=== PATIENT | male | born 1940 | race Caucasian/White ===

== ENCOUNTER → 2017-12-05 | Outpatient (CLI) | payer MEDICARE ==
[~2017-12-05] MED LIST: ASPI-1471 PO; BLOO-1511 MC; BLOO-960 MC; CA C1TAB85 PO; CEPH500T7 PO; CHOL10005 PO; CHOL200021 PO; COL625PT PO; EZET10TA41 PO; GOLYTE PO; HUM100VI2 SUBQ; INSU100V24 SQ; LANC-648 MC; LANI SUBQ; LISI-351 PO; LISI-353 PO; METF-420 PO; MULT1TAB64 PO; NPH,100V2 SUBQ; PNEU0.5D3 IM; PRED-1 PO; SIMV-49 PO
== END ==
LOC: LAB 08:14
PROVIDERS: ATTEND Emergency Medicine
DX: Z12.5 Encounter for screening for malignant neoplasm of prostate (principal); N18.3 Chronic kidney disease, stage 3 (moderate); E11.9 Type 2 diabetes mellitus without complications
CPT/HCPCS: 36415; 83036; G0103; 82310; 82374; 82435; 82565; 82947; 84132; 84153; 84295; 84520

== ENCOUNTER → 2018-03-10 | Outpatient (CLI) | payer MEDICARE ==
[~2018-03-10] MED LIST changes: +SYRI-1525 MC
== END ==
LOC: LAB 08:05
PROVIDERS: ATTEND Emergency Medicine
DX: E11.9 Type 2 diabetes mellitus without complications (principal)
CPT/HCPCS: 36415; 83036

== ENCOUNTER 2018-03-12 09:49 | Emergency (ER) | payer MEDICARE ==
[~2018-03-12 09:49] MED LIST changes: -METF-420 PO; +METF-421 PO
[2018-03-12] MEDS ORDERED: DIPHTH/TETANUS/ACEL. PERTUSSIS IM ONLY ONE (10:00)
--- NOTE | 2018-03-12 10:04 | ER Report ---
History and Physical Time Seen By MD: 10:00 HPI/ROS CHIEF COMPLAINT: Fall HISTORY OF PRESENT ILLNESS: 77-year-old male who mechanical fall tripped over a curb has abrasions to his face and both of his hands the patient had no loss of consciousness he is denying any neck pain patient has some mild abrasions to his forehead and nose and the palms of both his hands has no wrist pain ( shoulder pain no chest pain was a symptomatically prior to follow simple was mechanical fall no additional complaints noted REVIEW OF SYSTEMS: Respiratory: No cough, no dyspnea. Cardiovascular: No chest pain, no palpitations. Gastrointestinal: No vomiting, no abdominal pain. Musculoskeletal: No back pain. Remainder of the 14 system rev: Yes Allergies: Coded Allergies: Uqopoxx-Kax-Etd Reductase Inhibitor (Verified Adverse Reaction, Intermediate, pain in left hip about 2012. , 05/17/15) Home Meds Active Scripts Syringe & Needle,Insulin,1 Ml (INSULIN SYRINGE) 1 Each Disp.syrin, EACH MC Q30D , #100 Prov:PREM LARA MD 02/18/18 Insulin Lispro 100 Un/Ml Vial (HUMALOG 100 U/ML VIAL) 100 Unit/1 Ml Vial, 4 UNIT SQ DAILY, #1 VIAL 11 Refills Take 4 units within 15 mins of starting breakfast,6 units before lunch and dinner Prov:PREM LARA MD 02/11/18 Insulin Glargine (LANTUS) 100 Unit/Ml Soln, 30 UNIT SUBQ QHS, #3 VIAL 11 Refills . Prov:PREM LARA MD 12/09/17 Lisinopril/Hydrochlorothiazide (LISINOPRIL-HCTZ 10-12.5 MG TAB) 1 Each Tablet, 1 EACH PO DAILY, #90 TAB 4 Refills Prov:PREM LARA MD 12/06/17 Lancets (BD ULTRA-FINE) 1 Each Each, 1 BOX MC TID, #1 11 Refills Check glucose levels TID Prov:PREM LARA MD 09/10/17 Metformin Hcl (METFORMIN HCL) 1,000 Mg Tablet, 1 TAB PO BID, #180 TAB 4 Refills TAKE ONE TABLET BY MOUTH TWO TIMES A DAY Prov:PREM LARA MD 04/11/17 Blood Sugar Diagnostic (GLUCOSE TEST STRIP) 1 Each Strip, 1 STRIP MC QID, #120 STRIP 12 Refills Prov:PREM LARA MD 11/30/15 Blood-Glucose Meter (BLOOD GLUCOSE METER) 1 Each Each, 1 EACH , #1 0 Refills Prov:PREM LARA MD 11/30/15 Aspirin (ASPIR 81) 81 Mg Tablet.dr, 1 TAB PO 3XW for 30 Days, TAB Prov:PREM LARA MD 11/23/15 Reported Medications Cholecalciferol (Vitamin D3) (VITAMIN D) 2,000 Unit Capsule, 2000 UNIT PO DAILY , CAPSULE 03/20/17 Multivitamin (MULTI VITAMIN DAILY) 1 Each Tablet, 1 EACH PO QDAY, EA 11/23/15 Reviewed Nurses Notes: Yes Old Medical Records Reviewed: Yes Hx Smoking: Yes (2006 QUIT SMOKING) Smoking Status: Former Smoker Exposure to Second Hand Smoke?: No Hx Alcohol Use: No Constitutional Vital Sign - Last 24 Hours 03/12/18 09:55 Temp 97.0 Pulse 82 Resp 16 B/P (MAP) 125/75 Pulse Ox 92 O2 Delivery Room Air Physical Exam General Appearance: The patient is alert, has no immediate need for airway protection and no current signs of toxicity. No apparent distress Patient examination patient has abrasions to his forehead above his right eyebrow into his nasal bone bridge of the nose with some mild swelling little bit of epistaxis from the right naris Eyes: Pupils equal and round no injection. Respiratory: Chest is non tender, lungs are clear to auscultation. Cardiac: regular rate and rhythm [ ] Gastrointestinal: Abdomen is soft and non tender, no masses, bowel sounds normal. Musculoskeletal: Notable abrasions to the palmar aspects of both hands Neck is supple and non tender. Extremities have full range of motion and are non tender. Skin: Abrasions to the palmar aspects of both hands left greater than right with an obvious skin abrasion was some avulsed tissue in the right thumb has some abraded tissue as well will probably need debridement neurovascular intact otherwise unremarkable [ ] DIFFERENTIAL DIAGNOSIS: After history and physical exam differential diagnosis was considered for fall with contusion concussions or cranial head bleed nasal bone fracture Medical Decision Making Data Points Laboratory Hematology Test 03/12/18 10:42 Whole Blood Glucose 147 mg/DL (75-110) Chemistry Test 03/12/18 10:42 Whole Blood Glucose 147 mg/DL (75-110) ED Course/Re-evaluation ED Course ED clinical course 77-year-old male presented emergency Parvis status post mechanical fall after tripping over a curb with abrasions to his face and his hands right hand did demonstrate a deep laceration to the thenar eminence Procedural note wound was cleaned copiously irrigated aseptic technique 1% lidocaine was injected into the site crating good analgesia 500 sutures with 3- 0 nylon was placed with good cosmesis sterile dressing applied Other abrasions were cleaned and sterile dressings were applied head CT facial facial CT as well as CT cervical spine were performed these are all negative patient never lost consciousness not on blood thinners no labs performed this time patient advised to follow-up in 8-10 days for suture removal tetanus was updated on antibiotics given Decision to Disposition Date: Mar 12, 2018 Decision to Disposition Time: 11:27 Depart Departure Latest Vital Signs Vital Signs Date Time Temp Pulse Resp B/P (MAP) Pulse Ox O2 Delivery O2 Flow Rate FiO2 03/12/18 09:55 97.0 82 16 125/75 92 Room Air Impression: Primary Impression: Laceration Additional Impressions: Abrasion Fall in elderly patient Condition: Improved Disposition: HOME OR SELF-CARE Referrals: PREM LARA MD (PCP) 10 Days New Scripts Cephalexin (KEFLEX) 500 Mg Capsule 500 MG PO Q6H, #20 CAP 0 Refills TAKE ONE CAPSULE BY MOUTH EVERY SIX HOURS Prov: MICHAEL PEARSON MD 03/12/18 Patient Instructions: Acute Wound Care (DC) Problem Qualifiers MICHAEL PEARSON MD Mar 12, 2018 10:04
[2018-03-12] MEDS ORDERED: ACETAMINOPHEN 500 MG TAB PO ONE (10:20)
--- NOTE | 2018-03-12 11:21 | RADIOLOGY IMAGING REPORT ---
FACILITY: [facility] [place] PATIENT NAME: Andre Christianson : 1940 MR: [id number] V: [id number] EXAM DATE: ORDERING PHYSICIAN: MICHAEL PEARSON TECHNOLOGIST: Location: [facility] [place] Patient: Andre Christianson : 1940 Visit/Account:[id number] Date of Sevice: 03/12/2018 HEAD W/O CONTRAST, C-SPINE W/O CONTRAST, FACIAL BONES W/O CONTRAST Provided history: trauma Additional pertinent history: none TECHNIQUE: Imaging was obtained from the skull base through the vertex, followed by a spiral scan of the cervical spine and a spiral scan from the superior aspect of the orbits through the inferior a spect of mandible without intravenous contrast. Sagittal and coronal reformatted images were obtained from the source data on the brain, cervical sp ine and facial bones. One of the following dose optimization techniques was utilized in the performance of this exam: Autom ated exposure control; adjustment of the mA and/or kV according to the patient's size; or use of an i terative reconstruction technique. Specific details can be referenced in the facility's radiology CT exam operational policy. COMPARISON STUDIES: No relevant priors FINDINGS: BRAIN: Brain volume: Normal Acute cortical ischemia: None Chronic cortical and ganglionic ischemia: none significant Hemorrhage: None Masses / edema: None White matter: Normal Vessels: Normal Extra-axial: None significant Calvarium / scalp: Negative Skull base: negative Visualized sinuses / orbits: negative FACIAL BONES: Soft Tissues: negative Mandible / TMJ: No acute fracture. Moderate-sized well-defined benign torus projects medially from t he body of the right hemimandible. Maxillae / pterygoid plates: negative Zygoma / zygomatic arches: negative Orbits: negative Nasal bones / nasal septum: negative Sinuses: negative CERVICAL SPINE: Extra-vertebral soft tissues: 9 mm hypodensity left lobe of the thyroid is very likely benign. Acute bone and soft tissue findings: none Chronic / degenerative findings: Mild disc space narrowing C2-3 without significant stenosis. Mild narrowing at C3-4 with small endplate spurs. Lateralizing plate spurs and UV joint hypertrophy result in severe narrowing of the right foramen and moderate narrowing of the left foramen. Solid-appearing C4-5 fusion in normal alignment. Lateralizing endplate spurs and prominent UV joint hypertrophy result in severe narrowing of both foramina at this level. There is also at least mild n arrowing of the central canal overall. C5-6 reveals advanced disc space narrowing with moderate-sized symmetric posterior osteophytes result ing in mild narrowing the central canal. UV joint hypertrophy and lateralizing plate spurs result in moderate severe upper margin of both foramina. C6-7 demonstrates advanced disc space narrowing with small symmetric endplate spurs. UV joint hypert rophy results in moderate narrowing of both foramina. IMPRESSION: 1. Normal CT of the brain. No evidence of mass, acute ischemia or hemorrhage. 2. Negative assessment of the facial bones. 3. Degenerative changes in the cervical spine as detailed above. No acute bone or joint abnormality . Report Dictated By: Miguelito Phelps MD at 03/12/2018 11:07 AM Report E-Signed By: Miguelito Phelps MD at 03/12/2018 11:16 AM [id number]
--- NOTE | 2018-03-12 11:21 | RADIOLOGY IMAGING REPORT ---
FACILITY: [facility] - [place] PATIENT NAME: Andre Christianson : 1940 MR: [id number] V: [id number] EXAM DATE: ORDERING PHYSICIAN: MICHAEL PEARSON TECHNOLOGIST: Location: [facility] Patient: Andre Christianson : 1940 Visit/Account:[id number] Date of Sevice: 03/12/2018 HEAD W/O CONTRAST, C-SPINE W/O CONTRAST, FACIAL BONES W/O CONTRAST Provided history: trauma Additional pertinent history: none TECHNIQUE: Imaging was obtained from the skull base through the vertex, followed by a spiral scan of the cervical spine and a spiral scan from the superior aspect of the orbits through the inferior a spect of mandible without intravenous contrast. Sagittal and coronal reformatted images were obtained from the source data on the brain, cervical sp ine and facial bones. One of the following dose optimization techniques was utilized in the performance of this exam: Autom ated exposure control; adjustment of the mA and/or kV according to the patient's size; or use of an i terative reconstruction technique. Specific details can be referenced in the facility's radiology CT exam operational policy. COMPARISON STUDIES: No relevant priors FINDINGS: BRAIN: Brain volume: Normal Acute cortical ischemia: None Chronic cortical and ganglionic ischemia: none significant Hemorrhage: None Masses / edema: None White matter: Normal Vessels: Normal Extra-axial: None significant Calvarium / scalp: Negative Skull base: negative Visualized sinuses / orbits: negative FACIAL BONES: Soft Tissues: negative Mandible / TMJ: No acute fracture. Moderate-sized well-defined benign torus projects medially from t he body of the right hemimandible. Maxillae / pterygoid plates: negative Zygoma / zygomatic arches: negative Orbits: negative Nasal bones / nasal septum: negative Sinuses: negative CERVICAL SPINE: Extra-vertebral soft tissues: 9 mm hypodensity left lobe of the thyroid is very likely benign. Acute bone and soft tissue findings: none Chronic / degenerative findings: Mild disc space narrowing C2-3 without significant stenosis. Mild narrowing at C3-4 with small endplate spurs. Lateralizing plate spurs and UV joint hypertrophy result in severe narrowing of the right foramen and moderate narrowing of the left foramen. Solid-appearing C4-5 fusion in normal alignment. Lateralizing endplate spurs and prominent UV joint hypertrophy result in severe narrowing of both foramina at this level. There is also at least mild n arrowing of the central canal overall. C5-6 reveals advanced disc space narrowing with moderate-sized symmetric posterior osteophytes result ing in mild narrowing the central canal. UV joint hypertrophy and lateralizing plate spurs result in moderate severe upper margin of both foramina. C6-7 demonstrates advanced disc space narrowing with small symmetric endplate spurs. UV joint hypert rophy results in moderate narrowing of both foramina. IMPRESSION: 1. Normal CT of the brain. No evidence of mass, acute ischemia or hemorrhage. 2. Negative assessment of the facial bones. 3. Degenerative changes in the cervical spine as detailed above. No acute bone or joint abnormality . Report Dictated By: Miguelito Phelps MD at 03/12/2018 11:07 AM Report E-Signed By: Miguelito Phelps MD at 03/12/2018 11:16 AM WSN:[id number]
--- NOTE | 2018-03-12 11:22 | RADIOLOGY IMAGING REPORT ---
[place] [facility] [place]: Andre Christianson : 1940 MR: [id number] V: [id number] EXAM DATE: ORDERING PHYSICIAN: MICHAEL PEARSON TECHNOLOGIST: Location: [facility] Patient: Andre Christianson : 1940 Visit/Account:[id number] Date of Sevice: 03/12/2018 HEAD W/O CONTRAST, C-SPINE W/O CONTRAST, FACIAL BONES W/O CONTRAST Provided history: trauma Additional pertinent history: none TECHNIQUE: Imaging was obtained from the skull base through the vertex, followed by a spiral scan of the cervical spine and a spiral scan from the superior aspect of the orbits through the inferior a spect of mandible without intravenous contrast. Sagittal and coronal reformatted images were obtained from the source data on the brain, cervical sp ine and facial bones. One of the following dose optimization techniques was utilized in the performance of this exam: Autom ated exposure control; adjustment of the mA and/or kV according to the patient's size; or use of an i terative reconstruction technique. Specific details can be referenced in the facility's radiology CT exam operational policy. COMPARISON STUDIES: No relevant priors FINDINGS: BRAIN: Brain volume: Normal Acute cortical ischemia: None Chronic cortical and ganglionic ischemia: none significant Hemorrhage: None Masses / edema: None White matter: Normal Vessels: Normal Extra-axial: None significant Calvarium / scalp: Negative Skull base: negative Visualized sinuses / orbits: negative FACIAL BONES: Soft Tissues: negative Mandible / TMJ: No acute fracture. Moderate-sized well-defined benign torus projects medially from t he body of the right hemimandible. Maxillae / pterygoid plates: negative Zygoma / zygomatic arches: negative Orbits: negative Nasal bones / nasal septum: negative Sinuses: negative CERVICAL SPINE: Extra-vertebral soft tissues: 9 mm hypodensity left lobe of the thyroid is very likely benign. Acute bone and soft tissue findings: none Chronic / degenerative findings: Mild disc space narrowing C2-3 without significant stenosis. Mild narrowing at C3-4 with small endplate spurs. Lateralizing plate spurs and UV joint hypertrophy result in severe narrowing of the right foramen and moderate narrowing of the left foramen. Solid-appearing C4-5 fusion in normal alignment. Lateralizing endplate spurs and prominent UV joint hypertrophy result in severe narrowing of both foramina at this level. There is also at least mild n arrowing of the central canal overall. C5-6 reveals advanced disc space narrowing with moderate-sized symmetric posterior osteophytes result ing in mild narrowing the central canal. UV joint hypertrophy and lateralizing plate spurs result in moderate severe upper margin of both foramina. C6-7 demonstrates advanced disc space narrowing with small symmetric endplate spurs. UV joint hypert rophy results in moderate narrowing of both foramina. IMPRESSION: 1. Normal CT of the brain. No evidence of mass, acute ischemia or hemorrhage. 2. Negative assessment of the facial bones. 3. Degenerative changes in the cervical spine as detailed above. No acute bone or joint abnormality . Report Dictated By: Miguelito Phelps MD at 03/12/2018 11:07 AM Report E-Signed By: Miguelito Phelps MD at 03/12/2018 11:16 AM WSN:[id number]
[2018-03-12] MEDS ORDERED: CEPH-13 PO (11:28)
[2018-03-12 11:30] VITALS: BP 109/68
== END 2018-03-12 11:56 | disposition home or self-care (01) ==
LOC: ER 10:00
DX: S61.411A Laceration without foreign body of right hand, initial encounter (principal); R04.0 Epistaxis; E04.1 Nontoxic single thyroid nodule; Z79.4 Long term (current) use of insulin
CPT/HCPCS: 12001; 36416; 70450; 70486; 72125; 82948; 90471; 90715; 99283; A9270

== ENCOUNTER 2018-04-10 10:16 | Outpatient (RCR) | payer MEDICARE ==
[~2018-04-10 10:16] MED LIST changes: +CEPH-13 PO
--- NOTE | 2018-04-10 16:53 | PT INITIAL EVALUATION ---
MEDICAL DIAGNOSIS: Dehisced laceration to palmar side of R) 5th MCP joint; slow healing abrasion at L) thenar eminence, abrasion at L) distal thumb- lateral side. Injuries are s/p fall with outstretched hands approximately 12 days ago , seen in ER on 03/12/18 to stitch R) hand. TREATMENT DIAGNOSIS: same DATE OF ONSET: 03/12/18 SUBJECTIVE: Pt arrives with dressings on B) hands and states that he has been wearing gloves to keep them clean, or reinforcing the outer dressing. Pt also notes that stitches placed on 03/12/18 were removed recently and the wound at the R) 5th MCP joint did dehisce. Pt was referred for further wound care and debridement to address slow healing wounds to B) hands. REHAB PROBLEM LIST: Open wounds to B) hands; palmar surface. PREVIOUS MEDICAL HISTORY: Please refer to EMR OCCUPATION: Retired but enjoys gardening and working with his hands OBJECTIVE: Dehisced suture line at palmar side of R) 5th MCP joint with edema and bruising along proximal edge. Wound measures: 1cm L x 4cm W x 0.3cm in depth with some undermining towards proximal side of wound. Abrasion at L) thenar eminence measures: 2cm L x 5cm W x 0.3cm D with small flap noted to lateral side of wound. Unable to express any drainage with palpation along this edge. Distal phalanx of L) thumb also has abrasion along lateral side that is very small and superficial, nearly healed. This will be covered with a bandaid and monitored. ASSESSMENT: Non-excisional debridement completed with the use of tweezers to a depth of subcutaneous tissue in order to remove slough and non-viable tissue. Wounds cleansed with sterile saline, treated with medihoney and calcium alginate and covered with silicone border dressings, reinforced with rolled gauze to prevent them from becoming dislodged. Short Term Goals 1. Wounds to remain free from signs or symptoms of infection 2. Pt to maintain clean, dry and intact dressings between visits 3. Wounds to demo 100% granulation tissue and gradually epithelialize. Patient's Goals Wounds to heal without further complication PLAN: Patient to be seen for Non-excisional debridement of slough and non- viable tissue at open wounds, with selection of advanced wound care products for drainage management and efficient wound healing. Thank you for this referral. If you have any questions, comments, or concerns about this report or plan, please contact me at . H. Katie Loza PT, MPT MTDD
--- NOTE | 2018-04-12 12:05 | PT PLAN OF CARE ---
Physician: Dr. Zhang Good Patient is being seen: Andre Christianson Therapist: Jonnie Loza, PT, MPT Medical Diagnosis: Dehisced laceration to palmar side of R) 5th MCP joint; slow healing abrasion at L) thenar eminence, abrasion at L) distal thumb- lateral side. Injuries are s/p fall with outstretched hands approximately 12 days ago , seen in ER on 03/12/18 to stitch R) hand. Treatment Diagnosis: same Date of Onset: 03/12/18 Date of Initial Evaluation: 03/24/18 Date patient was last seen: 04/10/18 Number of treatments: 4 Number of cancellations/No shows: 0 INTERVENTIONS: Non-excisional debridement of slough and non-viable tissue at open wounds, with selection of advanced wound care products for drainage management and efficient wound healing. GOALS: 1. Wounds to remain free from signs or symptoms of infection 2. Pt to maintain clean, dry and intact dressings between visits 3. Wounds to demo 100% granulation tissue and gradually epithelialize. PATIENT'S GOAL: Wounds to heal without further complication Status of Patient's Goals: Met; Wound fully epithelialized Patient Compliance: Excellent Prognosis: Excellent Reasons for continuing therapy: None at this time; all wounds are fully epithelialized with no current signs of infection or drainage noted. Thank you for this referral. If you have any questions, comments, or concerns about this report or plan, please contact me at . Jonnie Loza PT, MPT [facility]
== END 2018-06-22 ==
LOC: PT 10:16
PROVIDERS: ATTEND Emergency Medicine
DX: S60.512A Abrasion of left hand, initial encounter (principal); S61.411A Laceration without foreign body of right hand, initial encounter; X58.XXXA Exposure to other specified factors, initial encounter
CPT/HCPCS: 97162

== ENCOUNTER → 2018-06-30 | Outpatient (CLI) | payer MEDICARE | LOC: LAB 08:30 | PROVIDERS: ATTEND Emergency Medicine | DX: E11.9 Type 2 diabetes mellitus without complications (principal) | CPT/HCPCS: 36415; 83036 ==

== ENCOUNTER → 2019-02-02 | Outpatient (CLI) | payer MEDICARE ==
[~2019-02-02] MED LIST changes: -METF-421 PO; +METF-452 PO
[2019-02-02 08:30] LABS: PLATELET COUNT, AUTOMATED 192 K/uL (150-450)
== END ==
LOC: LAB 08:12
PROVIDERS: ATTEND Emergency Medicine
DX: Z12.5 Encounter for screening for malignant neoplasm of prostate (principal); I10 Essential (primary) hypertension; E11.9 Type 2 diabetes mellitus without complications; D64.9 Anemia, unspecified
CPT/HCPCS: 36415; 82607; 82746; 83036; 83540; 83550; 84443; 85025; G0103; 82040; 82247; 82310; 82374; 82435; 82565; 82947; 84075; 84132; 84153; 84155; 84295; 84450; 84460; 84520

== ENCOUNTER → 2019-04-01 | Outpatient (CLI) | payer MEDICARE ==
[~2019-04-01] MED LIST changes: +DAPA5TAB PO; +EMPA10TA PO; +FLUT16SP19 NS; +SITA100T PO
== END ==
LOC: LAB 09:59
PROVIDERS: ATTEND Surgery
DX: C44.321 Squamous cell carcinoma of skin of nose (principal)
CPT/HCPCS: 88305

== ENCOUNTER → 2019-05-01 | Outpatient (CLI) | payer MEDICARE | LOC: LAB 07:18 | PROVIDERS: ATTEND Emergency Medicine | DX: E11.9 Type 2 diabetes mellitus without complications (principal) | CPT/HCPCS: 36415; 83036 ==

== ENCOUNTER → 2019-05-06 | Outpatient (CLI) | payer MEDICARE ==
[~2019-05-06] MED LIST changes: +INSU100V26 SUBQ
== END ==
LOC: LAB 10:28
PROVIDERS: ATTEND Surgery
DX: L98.9 Disorder of the skin and subcutaneous tissue, unspecified (principal)
CPT/HCPCS: 88305